=== PATIENT | male | born 1970 | race Caucasian/White ===

== ENCOUNTER 2016-09-17 16:06 | Emergency (ER) | payer MEDICARE, MEDICAID ==
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
--- NOTE | 2016-09-18 10:26 | Diagnostic Imaging Report ---
CHEST X-RAY: AP view INDICATION: Status post fall, decreased saturation COMPARISON: None FINDINGS: There is elevation of the right hemidiaphragm. No focal consolidation or effusions. No evidence of a pneumothorax. Heart size is normal. Degenerative changes of the spine are noted. IMPRESSION: No focal consolidation or evidence of pneumothorax.
--- NOTE | 2016-09-18 10:45 | Diagnostic Imaging Report ---
Left RIBS 3 views Indication: Fall Comparison: none Findings: There is a nondisplaced ninth left rib fracture. No evidence of pneumothorax. No pleural effusion. Impression: Nondisplaced left ninth rib fracture. No evidence of pneumothorax. In the setting of trauma, if clinical symptoms persist and there is continued concern for an occult fracture, follow up exams in 5-7 days is suggested. Final results were administered to the ER on 09/18/2016.
== END 2016-09-17 19:30 | disposition home or self-care (01) ==
LOC: ER 16:06
DX: S20.212A Contusion of left front wall of thorax, initial encounter (principal); I10 Essential (primary) hypertension; E11.9 Type 2 diabetes mellitus without complications; E78.5 Hyperlipidemia, unspecified; K21.9 Gastro-esophageal reflux disease without esophagitis; Z88.8 Allergy status to other drugs, medicaments and biological substances; X58.XXXA Exposure to other specified factors, initial encounter; Y93.89 Activity, other specified; Y92.89 Other specified places as the place of occurrence of the external cause; Y99.8 Other external cause status
CPT/HCPCS: 99284; 96372; 71010; 71101; J1885; Z7502

== ENCOUNTER 2016-10-24 17:53 | Emergency (ER) | payer MEDICARE, MEDICAID ==
--- NOTE | 2016-11-17 14:22 | ED Physician Chart ---
Chief Complaint/HPI - Patient Information Date Seen:: 10/24/16 Time Seen:: 18:10 Chief Complaint:: cough and congestion History of Present Illness:: THIS IS A 46 YO MALE WITH A SORE THROAT AND COUGH WITH CONGESTION. SHE DENIES A HISTORY OF PNEUMONIA AND ASTHMA. THE PATIENT STATES SHE HAS BEEN SICK FOR THREE DAYS. SHE DENIES . Allergies:: Allergies Allergy/AdvReac Type Severity Reaction Status Date / Time asenapine maleate Allergy Verified 09/17/16 16:19 [From [facility]] Historian:: Patient Review:: Nurse's Note Reviewed Review of Systems - Review of Systems General/Constitutional: No fever, No chills, No weight loss, No weakness, No diaphoresis, No edema, No loss of appetite Skin: No skin lesions, No rash, No bruising Head: No headache, No light-headedness Eyes: No loss of vision, No pain, No diplopia ENT: No earache, No nasal drainage, Sore throat, No tinnitus Neck: No neck pain, No swelling, No thyromegaly, No stiffness, No mass noted Cardio Vascular: No chest pain, No palpitations, No PND, No orthopnea, No edema Pulmonary: No SOB, Cough, No sputum, No wheezing, Other (CONGESTION) GI: No nausea, No vomiting, No diarrhea, No pain, No melena, No hematochezia, No constipation, No hematemesis G/U: No dysuria, No frequency, No hematuria Musculoskeletal: No bone or joint pain, No back pain, No muscle pain Endocrine: No polyuria, No polydipsia Psychiatric: No prior psych history, No depression, No anxiety, No suicidal ideation Hematopoietic: No bruising, No lymphadenopathy Allergic/Immuno: No urticaria, No angioedema Neurological: No syncope, No focal symptoms, No weakness, No paresthesia, No headache, No seizure, No dizziness, No confusion, No vertigo Past Medical History - Past Medical History Past Medical History: No significant medical hx Family History: None Social History: Non Smoker, No Alcohol, No Drug Use Surgical History: None Psychiatricy History: None Medication: Reviewed Family Medical History - Family Member Mother History Unknown: Yes Ethnicity: Living Status: Hx Family Coronary Artery Disease: Yes Hx Family Hypertension: Yes Hx Family Stroke: Yes Hx Family Diabetes: Yes Physical Exam - Physical Examination General/Constitutional: Awake, Well-developed, well-nourished, Alert, No distress, GCS 15, Non-toxic appearing, Ambulatory Head: Atraumatic Eyes: Lids, conjuctiva normal, PERRL, EOMI Skin: Nl inspection, No rash, No skin lesions, No ecchymosis, Well hydrated, No lymphadenopathy ENMT: External ears, nose nl, Nasal exam nl, Lips, teeth, gums nl Other ENMT comments:: POSTERIOR PHARYNX IS RED AND SWOLLEN Neck: Nontender, Full ROM w/o pain, No JVD, No nuchal rigidity, No bruit, No mass, No stridor Respiratory: Nl effort/Exclusion Other Respiratory comments:: THERE ARE BILATERAL RHONCHI HEARD. Cardio Vascular: RRR, No murmur, gallop, rubs, NL S1 S2 GI: No tenderness/rebounding/guarding, No organomegaly, No hernia, Normal BS's, Nondistended, No mass/bruits, No McBurney tenderness : No CVA tenderness Extremities: No tenderness or effusion, Full ROM, normal strength in all extremities, No edema, Normal digits & nails Neuro/Psych: Alert/oriented, DTR's symmetric, Normal sensory exam, Normal motor strength, Judgement/insight normal, Mood normal, Normal gait, No focal deficits Misc: normal gait, Normal back, No paraspinal tenderness Labs/Radiology/EKG Results - Lab Results Results: Laboratory Tests 10/24/16 18:01 POC Glucose 109 H Assessment - Assessment General Assessment: BRONCHITIS ED Septic Shock - . Is Septic Shock (SBP<90, OR Lactate>4 mmol\L) present?: No Reassessment (Disposition) - Reassessment Reassessment Condition:: Unchanged - Diagnosis Diagnosis:: BRONCHITIS PHARYNGITIS - Aftercare/Follow up Instructions Aftercare/Follow-Up Instructions:: Counseled pt regarding lab results/diagnosis & need follow up, Refer to Discharge Instructions, Counseled pt & family regarding lab results/diagnosis & need follow up - Patient Disposition Discharge/Transfer:: Home Condition at Disposition:: Unchanged ED Discharge Plan - Patient Disposition Admit/Discharge/Transfer: PT DISCHARGED HOME Condition at Disposition: Stable Instructions: Acute Bronchitis, [id number] Additional Instructions: TOLERATED.
== END 2016-10-24 18:25 | disposition home or self-care (01) ==
LOC: ER 17:53
DX: J02.9 Acute pharyngitis, unspecified (principal); J40 Bronchitis, not specified as acute or chronic; Z88.8 Allergy status to other drugs, medicaments and biological substances
CPT/HCPCS: 82948-90; Z7502

== ENCOUNTER 2017-05-21 18:10 | Emergency (ER) | payer MEDICARE, MEDICAID ==
--- NOTE | 2017-05-21 18:40 | ED Physician Chart ---
ED Chief Complaint/HPI - Patient Information Date Seen:: 05/21/17 Time Seen:: 18:30 Chief Complaint:: right knee and right ankle pain History of Present Illness:: Yesterday patient tripped on a irregular concrete and fell striking right knee. He's had right ankle pain for one month without recent trauma. Last tetanus booster about one and one half years ago. Patient stated he cleaned the right knee abrasion after the fall. Allergies:: Allergies Allergy/AdvReac Type Severity Reaction Status Date / Time asenapine maleate Allergy Verified 05/21/17 18:25 [From [facility]] Vitals:: Vital Signs - 8 hr 05/21/17 18:18 Temp 97.9 F HR 79 RR 16 BP 144/125 O2 Sat % 96 Historian:: Patient Review:: Nurse's Note Reviewed ED Review of Systems - Review of Systems General/Constitutional: Fever, No chills Skin: Skin lesions Head: No headache Eyes: No loss of vision ENT: No earache Neck: No neck pain, No swelling Cardio Vascular: No chest pain, No palpitations Pulmonary: No SOB, No wheezing GI: No nausea, No vomiting, No diarrhea G/U: No dysuria Musculoskeletal: Bone or joint pain Psychiatric: Prior psych history Hematopoietic: No bruising Allergic/Immuno: No urticaria Neurological: No syncope ED Past Medical History - Past Medical History Past Medical History: Other (depression) Family History: Heart disease, Diabetes Melitus Social History: Non Smoker, No Alcohol Surgical History: other (cataract) Psychiatricy History: Depression Medication: Reviewed Family Medical History - Family Member Mother History Unknown: Yes Ethnicity: Living Status: Hx Family Coronary Artery Disease: Yes Hx Family Hypertension: Yes Hx Family Stroke: Yes Hx Family Diabetes: Yes ED Physical Exam - Physical Examination General/Constitutional: Well-developed, well-nourished, Alert, No distress Head: Atraumatic Eyes: Lids, conjuctiva normal, PERRL ENMT: External ears, nose nl Neck: No nuchal rigidity Respiratory: Nl effort/Exclusion, Clear to Auscultation Cardio Vascular: RRR, No murmur, gallop, rubs, NL S1 S2 GI: No tenderness/rebounding/guarding, No organomegaly Extremities: Normal digits & nails Other Extremities comments:: Right knee: 4 cm abrasion over the distal patella and some contusion over the anterior knee; full range of motion; collateral cruciate ligaments stable. Right ankle: 3 out of 4 swelling over lateral malleolus; tenderness over lateral malleolus ED Labs/Radiology/EKG Results - Radiology Results Results: X-ray right knee negative. X-ray right ankle showed arthritis but no fracture. ED Septic Shock - . Is Septic Shock (SBP<90, OR Lactate>4 mmol\L) present?: No - <6hrs of presentation: Vital Signs: Vital Signs - 8 hr 05/21/17 18:18 Temp 97.9 F HR 79 RR 16 BP 144/125 O2 Sat % 96 ED Reassessment (Disposition) - Reassessment Reassessment Condition:: Unchanged - Diagnosis Diagnosis:: Right knee abrasion; arthritis right ankle - Aftercare/Follow up Instructions Medication Prescribed:: Keflex 500 mg 4 times a day 10 days for any possible infection of the abrasion of the right knee. - Patient Disposition Discharge/Transfer:: Home Condition at Disposition:: Stable, Unchanged
--- NOTE | 2017-05-22 08:18 | Diagnostic Imaging Report ---
Exam: Right ankle portable HISTORY: Pain swelling Findings: Portable examination of right ankle joint at 1850 hours reviewed. The study demonstrates a extensive degenerative osteopenic changes of the right ankle joint with superimposed soft tissue swelling over the right lateral malleolus. The ankle mortise is intact. There is no evidence for acute fracture dislocation. Vascular calcifications are noted. Slight calyceal fracture of the right medial malleolus. 1 cm calcifications noted in the posterior aspect of the right patella calcaneal joint. IMPRESSION: 1. Degenerative changes of the right ankle joint, superimposed soft tissue swelling right lateral malleolus. 2. Vascular calcifications. 3. Question of a fracture of the right medial malleolus most likely old, correlate clinically.
--- NOTE | 2017-05-22 08:19 | Diagnostic Imaging Report ---
Exam: Portable examination right knee joint. HISTORY: Trauma. Findings: Portable examination of the right knee joint at 1858 hours reviewed. The study demonstrates no evidence for acute fracture dislocation. The patella is intact. Degenerative narrowing of the joint space with flattening of tibial plateau with osteophytic spurring appreciated. There is no evidence for joint effusion. IMPRESSION: degenerative narrowing of the knee joint space, osteophytic spurring.
== END 2017-05-21 19:26 | disposition home or self-care (01) ==
LOC: ER 18:10
DX: S80.211A Abrasion, right knee, initial encounter (principal); M19.071 Primary osteoarthritis, right ankle and foot; W19.XXXA Unspecified fall, initial encounter; Y93.9 Activity, unspecified; Y92.89 Other specified places as the place of occurrence of the external cause; Y99.8 Other external cause status
CPT/HCPCS: 73560-TC-RT; 73610-RT-TC; Z7502

== ENCOUNTER 2017-05-28 12:57 | Emergency (ER) | payer MEDICARE, MEDICAID ==
--- NOTE | 2017-06-10 20:07 | ER Physician Documentation ---
DATE OF SERVICE: 05/28/2017 CHIEF COMPLAINT: Right knee abrasion. HISTORY OF PRESENT ILLNESS: This patient was seen here on 05/21/2017 for abrasion of his right knee and right ankle pain. X-ray of the right ankle showed arthritis only. X-ray of the right knee was negative. The patient returns here for a recheck of the right knee abrasion. REVIEW OF SYSTEMS: GENERAL: No chills or fever. SKIN: There is abrasion of the right knee. HEAD: No headache. EYES: No loss of vision. EAR, NOSE AND THROAT: No earache. NECK: No neck pain, no swelling. CARDIOVASCULAR: No chest pain, no palpitations. PULMONARY: No shortness of breath, no wheezing. GASTROINTESTINAL: No nausea, vomiting or diarrhea. GENITOURINARY: No dysuria. MUSCULOSKELETAL: Right ankle pain. PSYCHIATRIC: Prior psychiatric history present. HEMATOLOGICAL: No bruising. ALLERGIC IMMUNOLOGICAL: No urticaria. NEUROLOGIC: No syncope. PAST MEDICAL HISTORY: Depression. FAMILY HISTORY: Heart disease and diabetes. SOCIAL HISTORY: The patient is a nonsmoker. He does not use alcohol. SURGICAL HISTORY: Cataract surgery. PSYCHIATRIC HISTORY: Depression. MEDICATIONS: Reviewed. PHYSICAL EXAMINATION: GENERAL: The patient is well developed, well nourished, no acute distress. HEENT: Head is atraumatic. Eyes: Pupils equal, round, reactive to light. Ear, nose and throat normal. NECK: No neck stiffness. RESPIRATORY: Clear symmetrical, breath sounds. HEART: Regular rhythm. No murmur or extra sound. ABDOMEN: Bowel sounds present. Abdomen is soft, nontender, no organomegaly. EXTREMITIES: Normal digits and nails. Right knee, there is a 4 cm crusted abrasion with surrounding erythema of about 1 mm. DIAGNOSIS: Healing abrasion, right knee. PLAN: The patient will return if any increased redness, chills, fever or purulent discharge. JOB# [id number]
== END 2017-05-28 14:15 | disposition home or self-care (01) ==
LOC: ER 12:57
DX: S80.211D Abrasion, right knee, subsequent encounter (principal); X58.XXXD Exposure to other specified factors, subsequent encounter
CPT/HCPCS: Z7502

== ENCOUNTER 2018-10-10 06:18 | Emergency (ER) | payer MEDICARE, MEDICAID ==
--- NOTE | 2018-10-10 07:15 | ED Physician Chart ---
ED Chief Complaint/HPI - Patient Information Date Seen:: 10/10/18 Time Seen:: 07:10 Chief Complaint:: toe ulcer History of Present Illness:: 48 yr old IDDM with ulcer on side of rt big toe getting worse PMD out of town asking for antibiotics has problem with toe fungus and is on lamisil Allergies:: Allergies Allergy/AdvReac Type Severity Reaction Status Date / Time asenapine maleate Allergy Verified 07/24/18 20:28 [From [facility]] Vitals:: Vital Signs - 8 hr 10/10/18 06:25 Temp 98.6 F HR 82 RR 20 BP 112/66 O2 Sat % 96 ED Review of Systems - Review of Systems General/Constitutional: No fever Skin: Skin lesions Head: No headache Eyes: No loss of vision ENT: No earache Neck: No neck pain Cardio Vascular: No chest pain Pulmonary: No SOB GI: No vomiting Musculoskeletal: Bone or joint pain Endocrine: No polyuria Hematopoietic: Bruising Allergic/Immuno: No urticaria ED Past Medical History - Past Medical History Past Medical History: Other (IDDM) Family Medical History - Family Member Mother History Unknown: Yes Ethnicity: Living Status: Unknown Hx Family Coronary Artery Disease: Yes Hx Family Hypertension: Yes Hx Family Stroke: Yes Hx Family Diabetes: Yes ED Physical Exam - Physical Examination General/Constitutional: Awake Head: Atraumatic Eyes: Lids, conjuctiva normal Other Skin comments:: ABRASION SIDE OF RT BIG TOE AND SEVERE FUNGAL TOE NAILS Neck: Nontender Respiratory: Nl effort/Exclusion Cardio Vascular: RRR GI: No tenderness/rebounding/guarding Other Extremities comments:: EDEMAE Neuro/Psych: Alert/oriented ED Septic Shock - . Is Septic Shock (SBP<90, OR Lactate>4 mmol\L) present?: No - <6hrs of presentation: Vital Signs: Vital Signs - 8 hr 10/10/18 06:25 Temp 98.6 F HR 82 RR 20 BP 112/66 O2 Sat % 96 ED Reassessment (Disposition) - Reassessment Reassessment:: TOE ULCER ABRASION RT BIG TOE SKIN AREA AND SEVERE TOE NAIL FUNGUS - Aftercare/Follow up Instructions Medication Prescribed:: KEFLEX - Patient Disposition Discharge/Transfer:: Home Condition at Disposition:: Stable
== END 2018-10-10 07:18 | disposition home or self-care (01) ==
LOC: ER 06:18
DX: E11.621 Type 2 diabetes mellitus with foot ulcer (principal); L97.511 Non-pressure chronic ulcer of other part of right foot limited to breakdown of skin; B35.1 Tinea unguium; Z79.4 Long term (current) use of insulin; Z88.8 Allergy status to other drugs, medicaments and biological substances
CPT/HCPCS: Z7502